=== PATIENT | male | born 1950 | race Caucasian/White ===

== ENCOUNTER 2017-03-26 14:56 | Emergency (ER) | payer OTHER ==
[2017-03-26 15:03] VITALS: BP 150/82; PULSE 89; TEMP 98.5; BMI 36.5
[2017-03-26] MEDS ORDERED: LISINOPRIL 5 MG TABLET (FP) ONE (15:25)
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
[2017-03-26] MEDS ORDERED: LISINOPRIL 10 MG TABLET (FP) PO ONE (15:32)
== END 2017-03-26 15:33 | disposition home or self-care (01) ==
LOC: FER 14:56
DX: Z76.0 Encounter for issue of repeat prescription (principal)
CPT/HCPCS: 99281-25

== ENCOUNTER 2017-08-19 13:07 | Day surgery (SDC) | payer MEDICARE ==
[2017-08-18 13:45] VITALS: BMI 36.0
[2017-08-19] MEDS ORDERED: ONDANSETRON 4 MG/2 ML VIAL IVPUSH PRN (13:23)
[2017-08-19] MEDS ORDERED: oxyCODONE HCL 5 MG TABLET PO PRN ×2 (13:23)
[2017-08-19] MEDS ORDERED: LACTATED RINGERS SOLUTION 1,000 ML IV SCH (13:30)
[2017-08-19] MEDS ORDERED: ROPIVACAINE HCL 0.5% 30ML VIAL ONE (13:33)
[2017-08-19] MEDS ORDERED: PROPOFOL 20 ML ONE (13:48)
[2017-08-19] MEDS ORDERED: MIDAZOLAM HCL 2 MG/2 ML SINGLE DOSE VIAL ONE ×2 (13:48)
[2017-08-19] MEDS ORDERED: DEXAMETHASONE SOD PHOSPHATE 4 MG/1 ML VIAL ONE (14:30)
[2017-08-19] MEDS ORDERED: ceFAZolin SODIUM 1 GM VIAL ONE (14:30)
--- NOTE | 2017-08-19 14:30 | HP ---
Satellite [facility] - Chief Complaint Chief Complaint: right shoulder pain - Past Medical History Allergies/Adverse Reactions: Allergies Allergy/AdvReac Type Severity Reaction Status Date / Time No Known Allergies Allergy Verified 03/26/17 14:58 - Current Medications Current Medications: Home Medications Medication Instructions Recorded Lisinopril [Prinivil] 10 mg PO DAILY #30 tab 03/26/17 Latanoprost 2.5 ml OP HS 08/18/17 Multivitamin [One Daily] 1 each PO DAILY 08/18/17 Hydrocodone/Acetaminophen [Haskell 1 each PO Q6H PRN #40 tablet MDD 4 08/19/17 5-325 Tablet] Satellite Physical Exam - Physical Examination Vital Signs: Vital Signs Period Temp Pulse Resp BP Sys/Peres Pulse Ox Last 24 Hr 98.5 F 98 20 145/80 97 General Appearance: Well Nourished, Well Developed, Alert & Oriented x3 ENT: Clear Lung: Normal air movement Heart: Regular rate & rhythm Extremities: Other (right shoulder- + ttp, decr rom, + neer, + baxter, + empty can, nvi MRI chronic rct) Neurological: Intact, Alert, Oriented Satellite Impression/Plan - Impression/Plan Impression: right shoulder impingement, rct Operative Procedure: right shoulder arthroscopy with SAD possible RCR Date to be Performed: 08/19/17
[2017-08-19] MEDS ORDERED: SODIUM CHLORIDE 0.9% P/F 10 ML VIAL IJ ONE (14:31)
[2017-08-19] MEDS ORDERED: ePHEDrine SULFATE 50 MG/1 ML AMPULE ONE ×2 (15:13→16:03)
[2017-08-19] MEDS ORDERED: ceFAZolin SODIUM 1 GM VIAL IVPB ONE (15:20)
--- NOTE | 2017-08-19 16:53 | OP ---
Operative Note - Note: Operative Date: 08/19/17 Pre-Operative Diagnosis: right shoulder impingement, RTC tear Operation: right shoulder arthroscopy, decompression, mini open RTC repair Implants: Arthrex Swivel Lock anchors x 2, fiber wire Surgeon: Jayant Huizar Anesthesiologist/SOCIAL MEDIA SENIOR ASSOCIATE: Nuzhat Marcos Anesthesia: General Estimated Blood Loss (mls): 75 Drains, Volume Out (mls): 0 Blood Volume Replaced (mls): 0 Fluid Volume Replaced (mls): 1,000 Operative Report Dictated: Yes
[2017-08-19 19:48] VITALS: TEMP 98.2
[2017-08-19 19:55] VITALS: BP 140/71; PULSE 90
--- NOTE | 2017-08-20 08:35 | OP ---
DATE OF OPERATION: 08/19/2017 PREOPERATIVE DIAGNOSIS: Right shoulder impingement syndrome and rotator cuff tear. POSTOPERATIVE DIAGNOSIS: Right shoulder impingement syndrome and rotator cuff tear. PROCEDURE: Right shoulder arthroscopy, subacromial decompression, and mini-open rotator cuff repair. SURGEON: Ryan Diehl MD ASSISTANTS: None. ANESTHESIOLOGIST: Block, DEVELOPMENT ADMINISTRATOR; Magdy Alvarez MD ANESTHESIA: Right interscalene block with LMA anesthesia. DRAINS: None. COMPLICATIONS: None. BLOOD LOSS: 75 mL BLOOD GIVEN: None. FLUID REPLACEMENT: 1000 mL Plasmalyte. SPECIMEN: Arthroscopic shavings. INDICATION FOR PROCEDURE: The patient is a 67-year-old male with a preoperative diagnosis of a re-tear of a previously repaired right rotator cuff tear and impingement syndrome. After understanding the potential risks, complications, alternatives, and benefits of surgery versus nonsurgical treatment, the patient elected to undergo this procedure. This was explained in both [place] and [place]. DESCRIPTION OF PROCEDURE: The patient was brought to the operating room. Peripheral IV placed. IV sedation given and 2 g of IV Ancef was given. A right interscalene block was performed. He was placed into the beach chair position with ample padding throughout. The right upper extremity was prepped and draped in sterile fashion. The bony landmarks were marked out with a marking pen. A posterior portal was established with a number-15 scalpel blade. An arthroscope was introduced into the glenohumeral joint for diagnostic arthroscopy. Immediately was apparent the patient had a full-thickness re-tear of his rotator cuff. There were loose FiberWire sutures and a complex tear of the rotator cuff. 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 The humeral head looked good. The labrum was frayed and degenerated, but no marina tear to repair. Next, our attention turned to the subacromial space. A lateral portal was established under direct visualization using a spinal needle. The green cannula was introduced into the subacromial space. A shaver was used to remove the loose FiberWires. A soft tissue debridement and bursectomy was done with the ArthroCare wand and the curved shaver. Next, the 5.5-mm oval vlad was used to re-do the decompression. Once the decompression was done and the bursectomy was performed, I could better visualize the top surface of the rotator cuff tear. The tear was seen to be complex. I could see there was a crescent and radial shape. I could see the humeral head. There were multiple areas of tears. The whole thing was cleaned up. Additional FiberWires from the previous repair were removed. Then, under direct visualization, I used the Membersuiteion needle passer and passed 4 FiberWires. Next, I converted to a mini-open approach. The posterior portal was closed with 3-0 nylon suture. The lateral portal was opened further with a 15 scalpel blade. Subcutaneous hemostasis was achieved with Bovie cautery. A Gelpi and then Alden retractor were placed into the wound. Additional dissection done longitudinally through the deltoid. Additional bursectomy was performed in an open fashion. The arthroscopic fluid was removed. I was able to directly visualize the rotator cuff tear, and I was able to pull it down with the 4 FiberWires quite well. Therefore, the 2 landing beds for the SwiveLock anchors were determined, and I Bovied down through the periosteum to the bone. In the standard fashion, the posterior 4 tails and the anterior 4 tails were put through 2 separate Arthrex SwiveLock anchors and put down into the proximal humerus with a mallet in the standard fashion. The excess tails were removed. Direct visualization of the rotator cuff tear looked great. The humeral head was completely covered. The rotator cuff reapproximated and moved as a unit with the humerus. The closure was done with 0 Vicryl in the deltoid fascia, 2-0 Vicryl sutures. Final skin approximation was done with a running subcuticular 3-0 Biosyn stitch. The area was then washed and dried and covered with Steri-Strips. Xeroform was used to cover the posterior portal. It was all covered with sterile 4 x 4 gauze, ABDs, and tape. Total operative time was about an hour and 10 minutes. There were no complications during the case. The patient tolerated the procedure quite well and was brought to the ambulatory recovery room in stable condition. The shoulder immobilizer was placed while he was still asleep under anesthesia. RYAN DIEHL M.D. [id number]
--- NOTE | 2017-08-22 14:23 | PATH ---
Surgical Pathology Report Patient Name: DEACON MARCELO [facility]. Rec. #: [id number] /Age/Gender: 1950 (Age: 67) / M Account: [id number] Location: [facility] SURGICAL Taken: 08/19/2017 Received: 08/20/2017 Reported: 08/22/2017 Physicians: Jayant Huizar M.D. Specimen(s) Received RIGHT SHOULDER SHAVINGS Clinical History Rotator cuff tear right shoulder Final Diagnosis SHOULDER SHAVINGS, RIGHT, ARTHROSCOPY AND OPEN ROTATOR CUFF REPAIR: FRAGMENTS OF BENIGN CARTILAGE, SYNOVIUM, ADIPOSE TISSUE, SKELETAL MUSCLE AND BONE. Electronically Signed Toshia Tapia M.D. Gross Description Received in formalin, labeled "right shoulder shavings," is a 4.5 x 3.5 x 0.4 cm. aggregate of castaneda-yellow soft tissue fragments. A franchise sales representative portion is submitted in one cassette. 08/20/201708/20/2017
== END 2017-08-19 19:55 | disposition home or self-care (01) ==
LOC: JASU-SURG 13:07
PROVIDERS: ATTEND Orthopaedic Surgery
PROC: 0RBJ4ZZ Excision of Right Shoulder Joint, Percutaneous Endoscopic Approach (ICD-10-PCS; principal; 2017-08-19 14:30)
PROC: 0LQ10ZZ Repair Right Shoulder Tendon, Open Approach (ICD-10-PCS; 2017-08-19 14:30)
DX: M75.41 Impingement syndrome of right shoulder (principal); M75.101 Unspecified rotator cuff tear or rupture of right shoulder, not specified as traumatic
CPT/HCPCS: 88304-TC; 94760